=== PATIENT | male | born 1960 | race Caucasian/White ===

== ENCOUNTER 2021-09-25 15:46 | Inpatient (IN) | payer SELFPAY ==
[2021-09-25 16:59] LABS: #Eosinphils 0.1 thou/uL (0.0-0.7); #Lymphocytes 2.3 thou/uL (1.20-3.40); #Neutrophils 6.8 thou/uL (1.40-6.50); %Basophils 0.3 % (0.0-1.0); %Eosinophils 1.1 % (0.0-10.0); %Lymphocytes 22.6 % (21.0-51.0); %Monocytes 9.7 % (0.0-10.0); %Neutrophils 66.3 % (42.0-75.0); Mean Corpuscular HGB CONC 33.4 g/dL (32.0-36.0); Mean Corpuscular Hemoglobin 29.1 pg (27.0-31.0); Mean Platelet Volume 8.1 fL (7.4-10.4); Platelet Count 248 thou/uL (130-400); RBC Distribution Width 13.2 % (11.5-14.5); Red Blood Cell (RBC) Count 4.81 mill/uL (4.70-6.10); White Blood Cell (WBC) Count 10.3 thou/uL (4.8-10.8)
[2021-09-25 17:08] LABS: INR-International Normal Ratio 1.1; Prothrombin Time 14.2 sec (12.0-14.7)
[2021-09-25 17:09] LABS: PTT 32.7 sec (22.9-36.1)
[2021-09-25 17:18] LABS: ALT (SGPT) 21 U/L (8-55); AST (SGOT) 19 U/L (5-34); Albumin 3.9 g/dL (3.4-4.8); Alkaline Phosphatase 74 U/L (40-110); Anion Gap 15 mmol/L (10-20); BUN (Urea Nitrogen) 17 mg/dL (8.4-25.7); Bilirubin, Total 0.5 mg/dL (0.2-1.2); CK (CPK) 150 U/L (30-200); Calc. Creatinine Clearance 0 mL/min (70-130); Calcium 9.3 mg/dL (7.8-10.44); Carbon Dioxide 23 mmol/L (23-31); Chloride 104 mmol/L (98-107); Globulin 3.4 g/dL (2.4-3.5); Glucose 94 mg/dL (80-115); Lipase 22 U/L (8-78); Magnesium 1.6 mg/dL (1.6-2.6); Protein, Total 7.3 g/dL (5.8-8.1); Sodium 138 mmol/L (136-145)
[2021-09-25] MEDS ORDERED: Acetaminophen 325 MG TAB PO PRN (20:02)
[2021-09-25] MEDS ORDERED: Lisinopril 5 MG TAB PO SCH (20:15)
[2021-09-25] MEDS ORDERED: Amlodipine 10 MG TAB PO SCH (20:15)
[2021-09-25] MEDS ORDERED: hydrALAZINE 20 MG/ML VIAL SLOW IVP PRN (21:45)
[2021-09-25 21:57] LABS: Bacteria/HPF None Seen HPF (None Seen); Bilirubin Negative (Negative); Blood, Urine Negative (Negative); Clarity Clear (Clear); Glucose, Urine (Dipstick) Normal (Negative); Ketone, Urine Trace mg/dL (Negative); Leukocyte Negative Leu/uL (Negative); Nitrite Negative (Negative); Protein, Urine (Dipstick) 30 mg/dL (Neg-Trace); RBC/HPF None Seen HPF (0-3); Specific Gravity, Urine 1.018 (1.002-1.036); Squamous Epithelial None Seen HPF (0-3); WBC/HPF 0-3 HPF (0-3); pH, Urine 6.5 (5.0-9.0)
[2021-09-25 22:07] VITALS: BMI 25.6
[2021-09-25] MEDS: Sodium Chloride 0.9% 1,000 ML IV SCH ×2 (22:38→23:58)
[2021-09-25] MEDS: Atorvastatin Calcium 40 MG TAB PO SCH (22:38)
[2021-09-26] MEDS: Enoxaparin Sodium 40 MG/0.4 ML SYRINGE SC SCH (08:39)
[2021-09-26] MEDS: Clopidogrel Bisulfate 75 MG TAB PO SCH (10:19)
[2021-09-26] MEDS: Lisinopril 5 MG TAB PO SCH (10:19)
[2021-09-26] MEDS: Amlodipine 10 MG TAB PO SCH (10:19)
[2021-09-26] MEDS: Aspirin 81 mg Enteric Coated Tablet PO SCH (10:19)
[2021-09-26] MEDS: Polyethylene Glycol 3350 17 GM Packet PO SCH (10:19)
[2021-09-26] MEDS: Atorvastatin Calcium 40 MG TAB PO SCH (20:44)
[2021-09-27] MEDS: Enoxaparin Sodium 40 MG/0.4 ML SYRINGE SC SCH (08:29)
[2021-09-27] MEDS: Clopidogrel Bisulfate 75 MG TAB PO SCH (08:29)
[2021-09-27] MEDS: Amlodipine 10 MG TAB PO SCH (08:29)
[2021-09-27] MEDS: Lisinopril 5 MG TAB PO SCH (08:29)
[2021-09-27] MEDS: Polyethylene Glycol 3350 17 GM Packet PO SCH (08:29)
[2021-09-27] MEDS: Aspirin 81 mg Enteric Coated Tablet PO SCH (08:29)
[2021-09-27] MEDS: Atorvastatin Calcium 40 MG TAB PO SCH (20:33)
[2021-09-28] MEDS: Polyethylene Glycol 3350 17 GM Packet PO SCH (09:40)
[2021-09-28] MEDS: Aspirin Chewable 81 MG TAB PO SCH (09:42)
[2021-09-28] MEDS: Amlodipine 10 MG TAB PO SCH (09:43)
[2021-09-28] MEDS: Clopidogrel Bisulfate 75 MG TAB PO SCH (09:43)
[2021-09-28] MEDS: Lisinopril 5 MG TAB PO SCH (09:43)
[2021-09-28] MEDS: Enoxaparin Sodium 40 MG/0.4 ML SYRINGE SC SCH (09:44)
[2021-09-28] MEDS: Atorvastatin Calcium 40 MG TAB PO SCH (21:59)
[2021-09-29] MEDS: Amlodipine 10 MG TAB PO SCH (09:11)
[2021-09-29] MEDS: Aspirin Chewable 81 MG TAB PO SCH (09:11)
[2021-09-29] MEDS: Clopidogrel Bisulfate 75 MG TAB PO SCH (09:12)
[2021-09-29] MEDS: Enoxaparin Sodium 40 MG/0.4 ML SYRINGE SC SCH (09:12)
[2021-09-29] MEDS: Lisinopril 5 MG TAB PO SCH (09:12)
[2021-09-29] MEDS: Polyethylene Glycol 3350 17 GM Packet PO SCH (09:12)
[2021-09-29 12:08] VITALS: BP 129/80; TEMP 98.1
== END 2021-09-29 12:30 | disposition hospice, home (50) | DRG 57 ==
LOC: ERS 15:46 → NEURO 19:41
PROVIDERS: ADMIT Student in an Organized Health Care Education/Training Program; ATTEND Family Medicine
DX: I69.320 Aphasia following cerebral infarction (principal); I69.354 Hemiplegia and hemiparesis following cerebral infarction affecting left non-dominant side; Z66 Do not resuscitate; Z51.5 Encounter for palliative care; R62.7 Adult failure to thrive; I10 Essential (primary) hypertension; F17.210 Nicotine dependence, cigarettes, uncomplicated; E78.5 Hyperlipidemia, unspecified; F03.90 Unspecified dementia, unspecified severity, without behavioral disturbance, psychotic disturbance, mood disturbance, and anxiety; F10.10 Alcohol abuse, uncomplicated; F15.10 Other stimulant abuse, uncomplicated; I49.3 Ventricular premature depolarization; I65.22 Occlusion and stenosis of left carotid artery; Z79.899 Other long term (current) drug therapy; Z79.02 Long term (current) use of antithrombotics/antiplatelets; Z79.82 Long term (current) use of aspirin; Z83.3 Family history of diabetes mellitus; Z68.25 Body mass index [BMI] 25.0-25.9, adult
CPT/HCPCS: 36415; 70450; 71045; 80053; 81003; 81015; 82550; 83605; 83690; 83735; 84443; 84484; 85025; 85610; 85730; 87040; 87086; 93005; 94760; J1650